=== PATIENT | male | born 1955 | race Caucasian/White ===

== ENCOUNTER → 2018-12-30 | Outpatient (CLI) | payer MEDICARE, OTHER ==
--- NOTE | 2018-12-30 16:45 | PCVCIMAG ---
APPROVED REPORT Study performed: 12/30/2018 15:36:17 EXAM: Comprehensive 2D, Doppler, and color-flow Echocardiogram Patient Location: Echo lab Status: routine BSA: 2.11 HR: 58 bpmBP: 146/90 mmHg Rhythm: PVC's Other Information Study Quality: Adequate Risk Factors: Cardiac Risk Factors: HTN, Hyperlipidemia Indications Abnormal ECG Pre-Op 2D Dimensions IVSd: 13.02 (7-11mm) LVDd: 50.42 mm PWd: 13.16 (7-11mm)Ascending Ao: 35.94 (22-36mm) LVDs: 39.27 (25-40mm) Left Atrium: 46.18 (27-40mm) Aortic Root: 32.71 mm LV Single Plane 4CH: 45.88 % LV Single Plane 2CH: 52.82 % Biplane EF: 49.5 % Volumes Left Atrial Volume (Systole) Single Plane 4CH: 65.61 mLSingle Plane 2CH: 86.05 mL LA ESV Index: 37.00 mL/m2 Aortic Valve AoV Peak Jareth.: 1.44 m/s AO Peak Gr.: 8.30 mmHgLVOT Max P.11 mmHg LVOT Max V: 0.88 m/s AI Vmax: 4.78 m/s AI Treasure: 2.48 m/s2 AI PHT: 559.61 ms Mitral Valve E/A Ratio: 0.8 MV Decel. Time: 318.39 ms MV E Max Jareth.: 0.54 m/s MV A Jareth.: 0.70 m/s IVRT: 155.71 ms Pulmonary Valve PV Peak Jareth.: 1.08 m/sPV Peak Gr.: 4.65 mmHg Pulmonary Vein P Vein S: 0.27 m/sP Vein A: 0.36 m/s P Vein D: 0.40 m/sP Vein A Dur.: 128.0 msec P Vein S/D Ratio: 0.68 Tricuspid Valve TR Peak Jareth.: 2.32 m/s TR Peak Gr.: 21.53 mmHg TV Vmax: 0.56 m/s Left Ventricle The left ventricle is normal size. There is normal LV segmental wall motion. Mild concentric left ventricular hypertrophy. The left ventricular systolic function is normal. The left ventricular ejection fraction is within the normal range. LVEF is 55%. Mild diastolic dysfunction is present (impaired relaxation pattern). Right Ventricle The right ventricle is normal size. The right ventricular systolic function is normal. Atria Left atrium is mildly dilated. The right atrium size is normal. Aortic Valve The aortic valve is normal in structure. Mild aortic regurgitation. There is no aortic valvular stenosis. Mitral Valve The mitral valve is normal in structure. Mild mitral regurgitation. No evidence of mitral valve stenosis. Tricuspid Valve The tricuspid valve is normal in structure. Mild tricuspid regurgitation with PAP of 30 mmHg. Pulmonic Valve The pulmonary valve is normal in structure. Trace pulmonic regurgitation. Great Vessels The aortic root is normal in size. IVC is normal in size and collapses >50% with inspiration. Pericardium There is no pericardial effusion. There is no pleural effusion. <Conclusion> The left ventricular systolic function is normal. There is normal LV segmental wall motion. LVEF is 55%. Mild diastolic dysfunction Left atrium is mildly dilated. The aortic valve is normal in structure. Mild aortic regurgitation, no stenosis. The mitral valve is normal in structure. Mild mitral regurgitation. Mild tricuspid regurgitation with pulmonary artery pressure of 30 mmHg. There is no pericardial effusion.
== END | disposition home or self-care (01) ==
LOC: PCVCCLINIC 14:30
PROVIDERS: ATTEND Internal Medicine
DX: Z01.818 Encounter for other preprocedural examination (principal); I07.1 Rheumatic tricuspid insufficiency; R94.31 Abnormal electrocardiogram [ECG] [EKG]; K21.9 Gastro-esophageal reflux disease without esophagitis; I12.9 Hypertensive chronic kidney disease with stage 1 through stage 4 chronic kidney disease, or unspecified chronic kidney disease; N18.3 Chronic kidney disease, stage 3 (moderate); E78.5 Hyperlipidemia, unspecified; I45.9 Conduction disorder, unspecified; Z94.4 Liver transplant status
CPT/HCPCS: 93005; 93306; G0463